=== PATIENT | male | born 1955 | race Caucasian/White ===

== ENCOUNTER → 2017-11-05 | Outpatient (CLI) | payer OTHER ==
[~2017-11-05] MED LIST: ATOR10TA69 PO
== END | disposition home or self-care (01) ==
LOC: CARD 08:16
PROVIDERS: ATTEND Psychiatry & Neurology Neurology
DX: H83.09 Labyrinthitis, unspecified ear (principal)

== ENCOUNTER 2020-05-01 08:50 | Inpatient (IN) | payer OTHER, MEDICARE ==
[~2020-05-01] VITALS: Ht 180.3 cm; Wt 88.5 kg
[2020-05-01 09:22] LABS: BASOPHILS % 0.5 % (0.0-2.0); EOSINOPHILS % 0.1 % (0.0-5.0); HEMOGLOBIN. 15.4 g/dL (14.0-18.0); LYMPHOCYTES % 17.2 % (20.0-50.0); MEAN CORPUSCULAR HEMOGLOBIN 27.7 pg (28.0-32.0); MEAN CORPUSCULAR VOLUME 82.9 fL (80.0-94.0); MEAN PLATELET VOLUME 7.9 fl (7.4-10.4); MONOCYTES % 7.1 % (2.0-8.0); NEUTROPHILS % 75.1 % (40.0-76.0); PLATELET 180 x1000/uL (130-400); RED BLOOD CELL COUNT 5.55 mill/uL (4.7-6.1); RED CELL DISTRIBUTION WIDTH 13.3 % (11.6-14.6)
[2020-05-01 09:28] LABS: CHLORIDE 105 mEq/L (98-107)
[2020-05-01 09:38] LABS: BG CARBOXYHEMOGLOBIN 0.6 % (0.5-1.5); BG DEOXYHEMOGLOBIN 2.7 % (0.0-5.0); BG HCO3 ACT 22.3 mmol/L (22.0-26.0); BG METHEMOGLOBIN 0.3 % (0.0-1.5); BG OXYGEN SATURATION 97.3 % (92.0-98.5); BG OXYHEMOGLOBIN 96.4 % (94.0-97.0); BG PCO2 33.4 mmHg (35.0-45.0); BG PH 7.442 (7.350-7.450); BG PO2 90.3 mmHg (75.0-100.0); BG SAMPLE SITE RIGHT BRACHIAL; BG TOTAL HEMOGLOBIN 16.1 g/dL (12.0-18.0); BG VENT MODE MASK - NRB
[2020-05-01] MEDS ORDERED: DEXAMETHASONE 4MG/ML 1ML VIAL IV ONE (10:45)
[2020-05-01] MEDS ORDERED: CEFTRIAXONE 1 G PREMIX 50 ML IV ONE (10:45)
[2020-05-01] MEDS ORDERED: AZITHROMYCIN 500 MG in DEXT 5% WATER 250 ML IV ONE (10:45)
[2020-05-01] MEDS ORDERED: ALBUTEROL 6.7GM HFA INHALER ORI PRN (13:15)
[2020-05-01] MEDS ORDERED: NITROGLYCERIN 0.4MG TABLET SL SL PRN (13:15)
[2020-05-01] MEDS ORDERED: NOREPINEPHRINE 8 MG in DEXT 5% WATER 242 ML IV PRN ×4 (14:00)
[2020-05-01] MEDS ORDERED: DEXTROSE 50% WATER 50ML SYRINGE IV PRN (14:45)
[2020-05-01] MEDS: ALBUTEROL 6.7GM HFA INHALER ORI SCH (15:00)
[2020-05-01] MEDS: BLOOD SUGAR DIAGNOSTIC STRIP TEST SCH ×2 (18:51→21:00)
[2020-05-01] MEDS: INSULIN LISPRO 100 UNITS/ML SUBCUT SCH (18:53)
[2020-05-01] MEDS ORDERED: ZOLPIDEM TARTRATE 5MG TABLET PO PRN (20:00)
[2020-05-01] MEDS: ASCORBIC ACID 500 MG TABLET PO SCH (21:58)
[2020-05-01] MEDS: FAMOTIDINE 20MG TABLET PO SCH (21:58)
[2020-05-01] MEDS: GUAIFENESIN/DM 600MG/30MG ER TAB 12HR PO SCH (21:58)
[2020-05-02 05:41] LABS: BASOPHILS % 0.7 % (0.0-2.0); HEMATOCRIT. 44.2 % (42.0-52.0); HEMOGLOBIN. 14.9 g/dL (14.0-18.0); LYMPHOCYTES % 13.2 % (20.0-50.0); MEAN CORPUSCULAR VOLUME 82.8 fL (80.0-94.0); MEAN PLATELET VOLUME 8.1 fl (7.4-10.4); NEUTROPHILS % 77.1 % (40.0-76.0); PLATELET 205 x1000/uL (130-400); RED BLOOD CELL COUNT 5.33 mill/uL (4.7-6.1); RED CELL DISTRIBUTION WIDTH 13.3 % (11.6-14.6)
[2020-05-02 05:54] LABS: CHLORIDE 110 mEq/L (98-107)
[2020-05-02 06:00] LABS: PHOSPHORUS 3.8 mg/dL (2.5-4.9)
[2020-05-02] MEDS: BLOOD SUGAR DIAGNOSTIC STRIP TEST SCH ×4 (06:30→21:00)
[2020-05-02] MEDS ORDERED: AZITHROMYCIN 500 MG in DEXT 5% WATER 250 ML IV SCH (09:00)
[2020-05-02] MEDS ORDERED: DEXAMETHASONE 10 MG/ML VIAL IV SCH (09:00)
[2020-05-02] MEDS ORDERED: CEFTRIAXONE 1 G PREMIX 50 ML IV SCH (09:00)
[2020-05-02] MEDS: ASPIRIN 81MG EC TABLET PO SCH (09:26)
[2020-05-02] MEDS: GUAIFENESIN/DM 600MG/30MG ER TAB 12HR PO SCH ×2 (09:27→21:20)
[2020-05-02] MEDS: FAMOTIDINE 20MG TABLET PO SCH ×2 (09:27→21:20)
[2020-05-02] MEDS: ASCORBIC ACID 500 MG TABLET PO SCH ×2 (09:27→21:20)
[2020-05-02] MEDS: ZINC SULFATE 220 MG ( 50 ) CAPSULE PO SCH (09:27)
[2020-05-02] MEDS: INSULIN LISPRO 100 UNITS/ML SUBCUT SCH ×4 (12:09→21:18)
[2020-05-02] MEDS: CHOLECALCIFEROL (D3) 1000 UNIT TABLET PO SCH (14:28)
[2020-05-02] MEDS: ENOXAPARIN 100MG/ML SYR SUBCUT SCH (15:02)
[2020-05-02] MEDS: DOXYCYCLINE HYCLATE 100MG CAPSULE PO SCH (21:20)
[2020-05-03 03:57] LABS: BASOPHILS % 0.8 % (0.0-2.0); HEMATOCRIT. 43.7 % (42.0-52.0); HEMOGLOBIN. 14.5 g/dL (14.0-18.0); LYMPHOCYTES % 9.6 % (20.0-50.0); MEAN CORPUSCULAR HEMOGLOBIN 27.4 pg (28.0-32.0); MEAN CORPUSCULAR VOLUME 82.4 fL (80.0-94.0); MEAN PLATELET VOLUME 8.1 fl (7.4-10.4); MONOCYTES % 7.5 % (2.0-8.0); NEUTROPHILS % 82.1 % (40.0-76.0); PLATELET 251 x1000/uL (130-400); RED CELL DISTRIBUTION WIDTH 13.7 % (11.6-14.6)
[2020-05-03 04:03] LABS: CHLORIDE 111 mEq/L (98-107)
[2020-05-03 04:11] LABS: D-DIMER 0.67 mg/L FEU (<0.50); PROTHROMBIN TIME 10.9 sec (9.6-11.0)
[2020-05-03] MEDS: ENOXAPARIN 100MG/ML SYR SUBCUT SCH ×2 (06:15→18:26)
[2020-05-03 12:00] VITALS: BP 136/69
[2020-05-03] MEDS: BLOOD SUGAR DIAGNOSTIC STRIP TEST SCH ×3 (12:25→20:42)
[2020-05-03] MEDS: INSULIN LISPRO 100 UNITS/ML SUBCUT SCH ×3 (12:26→20:41)
[2020-05-03] MEDS ORDERED: OMEG100016 MT (13:22)
[2020-05-03] MEDS: CHOLECALCIFEROL (D3) 1000 UNIT TABLET PO SCH (14:19)
[2020-05-03] MEDS: GUAIFENESIN/DM 600MG/30MG ER TAB 12HR PO SCH ×2 (14:19→20:36)
[2020-05-03] MEDS: DEXAMETHASONE 10 MG/ML VIAL IV SCH (14:20)
[2020-05-03] MEDS: DOXYCYCLINE HYCLATE 100MG CAPSULE PO SCH ×2 (14:20→20:35)
[2020-05-03] MEDS: ZINC SULFATE 220 MG ( 50 ) CAPSULE PO SCH (14:20)
[2020-05-03] MEDS: ASPIRIN 81MG EC TABLET PO SCH (14:20)
[2020-05-03] MEDS: FAMOTIDINE 20MG TABLET PO SCH ×2 (14:20→20:35)
[2020-05-03] MEDS: ASCORBIC ACID 500 MG TABLET PO SCH ×2 (14:20→20:35)
[2020-05-03 15:00] VITALS: BP 136/69
[2020-05-03] MEDS: CEFTRIAXONE 1,000 MG in DEXTROSE 5% WATER 50 ML IV SCH (15:05)
[2020-05-03 16:00] VITALS: BP 137/74
[2020-05-03 20:00] VITALS: BP 132/70
[2020-05-04] VITALS: BP 136/73
[2020-05-04] MEDS: ALBUTEROL 6.7GM HFA INHALER ORI SCH ×5 (00:02→21:18)
[2020-05-04 04:00] VITALS: BP 133/75
[2020-05-04] MEDS: ENOXAPARIN 100MG/ML SYR SUBCUT SCH ×2 (06:24→18:35)
[2020-05-04] MEDS: BLOOD SUGAR DIAGNOSTIC STRIP TEST SCH ×4 (07:11→21:14)
[2020-05-04] MEDS: INSULIN LISPRO 100 UNITS/ML SUBCUT SCH ×4 (07:11→21:13)
[2020-05-04 08:00] VITALS: BP 131/62
[2020-05-04] MEDS ORDERED: INFLUENZA VACCINE 05/PF 0.5 ML VIAL IM ONE (09:00)
[2020-05-04] MEDS: DEXAMETHASONE 10 MG/ML VIAL IV SCH (09:37)
[2020-05-04] MEDS: ASCORBIC ACID 500 MG TABLET PO SCH ×2 (09:37→21:14)
[2020-05-04] MEDS: GUAIFENESIN/DM 600MG/30MG ER TAB 12HR PO SCH ×2 (09:37→21:14)
[2020-05-04] MEDS: DOXYCYCLINE HYCLATE 100MG CAPSULE PO SCH ×2 (09:37→21:14)
[2020-05-04] MEDS: FAMOTIDINE 20MG TABLET PO SCH ×2 (09:37→21:14)
[2020-05-04] MEDS: CHOLECALCIFEROL (D3) 1000 UNIT TABLET PO SCH (09:37)
[2020-05-04] MEDS: ASPIRIN 81MG EC TABLET PO SCH (09:37)
[2020-05-04] MEDS: ZINC SULFATE 220 MG ( 50 ) CAPSULE PO SCH (09:42)
[2020-05-04 12:00] VITALS: BP 130/70
[2020-05-04] MEDS: CEFTRIAXONE 1,000 MG in DEXTROSE 5% WATER 50 ML IV SCH (14:14)
[2020-05-04 16:00] VITALS: BP 124/67
[2020-05-04 20:00] VITALS: BP 125/66
[2020-05-05] VITALS: BP 127/69
[2020-05-05] MEDS: ALBUTEROL 6.7GM HFA INHALER ORI SCH ×3 (03:22→17:47)
[2020-05-05 04:00] VITALS: BP 130/59
[2020-05-05] MEDS: ENOXAPARIN 100MG/ML SYR SUBCUT SCH ×2 (05:36→17:48)
[2020-05-05] MEDS: BLOOD SUGAR DIAGNOSTIC STRIP TEST SCH ×4 (07:03→21:59)
[2020-05-05 08:00] VITALS: BP 140/60
[2020-05-05] MEDS: INSULIN LISPRO 100 UNITS/ML SUBCUT SCH ×4 (08:10→21:44)
[2020-05-05] MEDS: CEFTRIAXONE 1,000 MG in DEXTROSE 5% WATER 50 ML IV SCH (09:44)
[2020-05-05] MEDS: GUAIFENESIN/DM 600MG/30MG ER TAB 12HR PO SCH ×2 (09:44→21:59)
[2020-05-05] MEDS: DEXAMETHASONE 10 MG/ML VIAL IV SCH (09:44)
[2020-05-05] MEDS: FAMOTIDINE 20MG TABLET PO SCH ×2 (09:44→21:59)
[2020-05-05] MEDS: ASPIRIN 81MG EC TABLET PO SCH (09:44)
[2020-05-05] MEDS: ZINC SULFATE 220 MG ( 50 ) CAPSULE PO SCH (09:44)
[2020-05-05] MEDS: ASCORBIC ACID 500 MG TABLET PO SCH ×2 (09:44→21:58)
[2020-05-05] MEDS: CHOLECALCIFEROL (D3) 1000 UNIT TABLET PO SCH (09:44)
[2020-05-05] MEDS: DOXYCYCLINE HYCLATE 100MG CAPSULE PO SCH ×2 (09:44→21:58)
[2020-05-05] MEDS: TRAMADOL 50MG TABLET PO PRN (10:02)
[2020-05-05 12:00] VITALS: BP 133/65
[2020-05-05 16:00] VITALS: BP 132/63
[2020-05-05 20:00] VITALS: BP 124/61
[2020-05-06] VITALS: BP 115/57
[2020-05-06 04:00] VITALS: BP 157/61
[2020-05-06] MEDS: ENOXAPARIN 100MG/ML SYR SUBCUT SCH ×2 (05:20→17:57)
[2020-05-06] MEDS: BLOOD SUGAR DIAGNOSTIC STRIP TEST SCH ×4 (06:08→21:25)
[2020-05-06 08:00] VITALS: BP 112/67
[2020-05-06] MEDS: INSULIN LISPRO 100 UNITS/ML SUBCUT SCH ×4 (08:10→22:36)
[2020-05-06] MEDS: ASCORBIC ACID 500 MG TABLET PO SCH ×2 (09:32→21:24)
[2020-05-06] MEDS: GUAIFENESIN/DM 600MG/30MG ER TAB 12HR PO SCH ×2 (09:32→21:25)
[2020-05-06] MEDS: FAMOTIDINE 20MG TABLET PO SCH ×2 (09:32→21:25)
[2020-05-06] MEDS: ASPIRIN 81MG EC TABLET PO SCH (09:33)
[2020-05-06] MEDS: CHOLECALCIFEROL (D3) 1000 UNIT TABLET PO SCH (09:33)
[2020-05-06] MEDS: DOXYCYCLINE HYCLATE 100MG CAPSULE PO SCH ×2 (09:33→21:25)
[2020-05-06] MEDS: DEXAMETHASONE 10 MG/ML VIAL IV SCH (09:34)
[2020-05-06] MEDS: ALBUTEROL 6.7GM HFA INHALER ORI SCH ×2 (09:35→15:14)
[2020-05-06] MEDS: ZINC SULFATE 220 MG ( 50 ) CAPSULE PO SCH (09:35)
[2020-05-06] MEDS: TRAMADOL 50MG TABLET PO PRN (09:40)
[2020-05-06 12:00] VITALS: BP 116/67
[2020-05-06 16:00] VITALS: BP 119/58
[2020-05-06] MEDS ORDERED: ENOXAPARIN 100MG/ML SYR SUBCUT SCH (16:51)
[2020-05-06 20:00] VITALS: BP 118/69
[2020-05-07] VITALS: BP 108/70
[2020-05-07 04:00] VITALS: BP 129/58
[2020-05-07] MEDS: ENOXAPARIN 100MG/ML SYR SUBCUT SCH ×2 (05:22→17:33)
[2020-05-07] MEDS: BLOOD SUGAR DIAGNOSTIC STRIP TEST SCH ×4 (05:22→21:01)
[2020-05-07 08:00] VITALS: BP 124/61
[2020-05-07] MEDS: INSULIN LISPRO 100 UNITS/ML SUBCUT SCH ×4 (08:10→21:19)
[2020-05-07] MEDS: ASPIRIN 81MG EC TABLET PO SCH (10:27)
[2020-05-07] MEDS: ASCORBIC ACID 500 MG TABLET PO SCH ×2 (10:27→21:18)
[2020-05-07] MEDS: DOXYCYCLINE HYCLATE 100MG CAPSULE PO SCH ×2 (10:27→21:18)
[2020-05-07] MEDS: CHOLECALCIFEROL (D3) 1000 UNIT TABLET PO SCH (10:27)
[2020-05-07] MEDS: GUAIFENESIN/DM 600MG/30MG ER TAB 12HR PO SCH ×2 (10:27→21:18)
[2020-05-07] MEDS: ZINC SULFATE 220 MG ( 50 ) CAPSULE PO SCH (10:28)
[2020-05-07] MEDS: FAMOTIDINE 20MG TABLET PO SCH ×2 (10:28→21:18)
[2020-05-07] MEDS: ALBUTEROL 6.7GM HFA INHALER ORI SCH ×3 (10:29→22:10)
[2020-05-07] MEDS: DEXAMETHASONE 10 MG/ML VIAL IV SCH (10:30)
[2020-05-07] MEDS ORDERED: FUROSEMIDE 40MG TABLET PO NR (11:00)
[2020-05-07 12:00] VITALS: BP 134/64
[2020-05-07 13:15] LABS: BG BASE EXCESS 0.2 mmol/L (-2.0-2.0); BG CARBOXYHEMOGLOBIN 0.7 % (0.5-1.5); BG DEOXYHEMOGLOBIN 12.3 % (0.0-5.0); BG FRACTION INSPIRED OXYGEN 40; BG HCO3 ACT 22.7 mmol/L (22.0-26.0); BG METHEMOGLOBIN 0.1 % (0.0-1.5); BG OXYGEN SATURATION 87.6 % (92.0-98.5); BG OXYHEMOGLOBIN 86.9 % (94.0-97.0); BG PCO2 31.2 mmHg (35.0-45.0); BG PO2 48.5 mmHg (75.0-100.0); BG SAMPLE SITE LEFT RADIAL; BG TOTAL HEMOGLOBIN 15.4 g/dL (12.0-18.0); BG VENT MODE NASAL CANNULA
[2020-05-07 16:00] VITALS: BP 129/65
[2020-05-07] MEDS ORDERED: TRAMADOL 50MG TABLET PO PRN (16:00)
[2020-05-07 20:00] VITALS: BP 125/63
[2020-05-08] VITALS: BP 120/66
[2020-05-08] MEDS: ALBUTEROL 6.7GM HFA INHALER ORI SCH ×4 (03:50→21:00)
[2020-05-08 04:00] VITALS: BP 129/64
[2020-05-08] MEDS: BLOOD SUGAR DIAGNOSTIC STRIP TEST SCH ×4 (06:14→20:13)
[2020-05-08 06:31] LABS: CHLORIDE 108 mEq/L (98-107); HEMATOCRIT. 43.6 % (42.0-52.0); HEMOGLOBIN. 14.2 g/dL (14.0-18.0); MEAN CORPUSCULAR HEMOGLOBIN 27.2 pg (28.0-32.0); MEAN CORPUSCULAR VOLUME 83.6 fL (80.0-94.0); PLATELET 388 x1000/uL (130-400); RED BLOOD CELL COUNT 5.22 mill/uL (4.7-6.1); RED CELL DISTRIBUTION WIDTH 13.4 % (11.6-14.6)
[2020-05-08] MEDS: ENOXAPARIN 100MG/ML SYR SUBCUT SCH ×2 (06:45→17:40)
[2020-05-08 08:00] VITALS: BP 134/68
[2020-05-08] MEDS: INSULIN LISPRO 100 UNITS/ML SUBCUT SCH ×4 (08:10→20:42)
[2020-05-08] MEDS: DEXAMETHASONE 10 MG/ML VIAL IV SCH (08:44)
[2020-05-08] MEDS: ASPIRIN 81MG EC TABLET PO SCH (08:44)
[2020-05-08] MEDS: ZINC SULFATE 220 MG ( 50 ) CAPSULE PO SCH (08:44)
[2020-05-08] MEDS: ASCORBIC ACID 500 MG TABLET PO SCH ×2 (08:45→20:41)
[2020-05-08] MEDS: FAMOTIDINE 20MG TABLET PO SCH ×2 (08:45→20:41)
[2020-05-08] MEDS: CHOLECALCIFEROL (D3) 1000 UNIT TABLET PO SCH (08:45)
[2020-05-08 12:00] VITALS: BP 110/58
[2020-05-08] MEDS: GUAIFENESIN/DM 600MG/30MG ER TAB 12HR PO SCH ×2 (12:36→20:41)
[2020-05-08 16:00] VITALS: BP 119/71
[2020-05-08 20:00] VITALS: BP 129/65
[2020-05-09] VITALS: BP 133/71
[2020-05-09 04:00] VITALS: BP 128/59
[2020-05-09] MEDS: ENOXAPARIN 100MG/ML SYR SUBCUT SCH ×2 (05:13→17:19)
[2020-05-09] MEDS: BLOOD SUGAR DIAGNOSTIC STRIP TEST SCH ×4 (05:22→23:00)
[2020-05-09 07:31] LABS: PLATELET ESTIMATE NORMAL
[2020-05-09 08:00] VITALS: BP 124/73
[2020-05-09] MEDS: INSULIN LISPRO 100 UNITS/ML SUBCUT SCH ×4 (08:10→23:09)
[2020-05-09] MEDS: CHOLECALCIFEROL (D3) 1000 UNIT TABLET PO SCH (09:22)
[2020-05-09] MEDS: GUAIFENESIN/DM 600MG/30MG ER TAB 12HR PO SCH ×2 (09:22→23:11)
[2020-05-09] MEDS: ZINC SULFATE 220 MG ( 50 ) CAPSULE PO SCH (09:22)
[2020-05-09] MEDS: ASPIRIN 81MG EC TABLET PO SCH (09:22)
[2020-05-09] MEDS: FAMOTIDINE 20MG TABLET PO SCH ×2 (09:22→22:58)
[2020-05-09] MEDS: ASCORBIC ACID 500 MG TABLET PO SCH ×2 (09:22→22:58)
[2020-05-09] MEDS: DEXAMETHASONE 10 MG/ML VIAL IV SCH (09:27)
[2020-05-09] MEDS: ALBUTEROL 6.7GM HFA INHALER ORI SCH ×3 (09:29→23:16)
[2020-05-09 12:00] VITALS: BP_SYST 123
[2020-05-09 16:00] VITALS: BP 123/67
[2020-05-09 20:00] VITALS: BP 115/67
[2020-05-10] VITALS: BP 115/69
[2020-05-10 04:00] VITALS: BP 127/70
[2020-05-10] MEDS: ENOXAPARIN 100MG/ML SYR SUBCUT SCH ×2 (06:30→17:02)
[2020-05-10] MEDS: ALBUTEROL 6.7GM HFA INHALER ORI SCH ×4 (06:35→21:00)
[2020-05-10] MEDS: BLOOD SUGAR DIAGNOSTIC STRIP TEST SCH ×4 (06:42→21:03)
[2020-05-10 08:00] VITALS: BP 149/69
[2020-05-10] MEDS: ZINC SULFATE 220 MG ( 50 ) CAPSULE PO SCH (09:39)
[2020-05-10] MEDS: GUAIFENESIN/DM 600MG/30MG ER TAB 12HR PO SCH ×2 (09:39→21:12)
[2020-05-10] MEDS: CHOLECALCIFEROL (D3) 1000 UNIT TABLET PO SCH (09:40)
[2020-05-10] MEDS: ASPIRIN 81MG EC TABLET PO SCH (09:40)
[2020-05-10] MEDS: ASCORBIC ACID 500 MG TABLET PO SCH ×2 (09:40→21:12)
[2020-05-10] MEDS: DEXAMETHASONE 10 MG/ML VIAL IV SCH (09:42)
[2020-05-10] MEDS: INSULIN LISPRO 100 UNITS/ML SUBCUT SCH ×4 (09:43→21:13)
[2020-05-10 12:00] VITALS: BP 105/63
[2020-05-10] MEDS: FAMOTIDINE 20MG TABLET PO SCH ×2 (13:10→21:12)
[2020-05-10 16:00] VITALS: BP 116/65
[2020-05-10 20:00] VITALS: BP 124/44
[2020-05-11] VITALS: BP 120/68
[2020-05-11] MEDS: ALBUTEROL 6.7GM HFA INHALER ORI SCH ×4 (03:00→21:58)
[2020-05-11 04:00] VITALS: BP 124/66
[2020-05-11] MEDS: ENOXAPARIN 100MG/ML SYR SUBCUT SCH ×2 (05:22→17:15)
[2020-05-11 08:00] VITALS: BP 108/53
[2020-05-11] MEDS: INSULIN LISPRO 100 UNITS/ML SUBCUT SCH ×4 (08:10→21:54)
[2020-05-11] MEDS: BLOOD SUGAR DIAGNOSTIC STRIP TEST SCH ×4 (08:23→21:37)
[2020-05-11] MEDS: ZINC SULFATE 220 MG ( 50 ) CAPSULE PO SCH (09:33)
[2020-05-11] MEDS: GUAIFENESIN/DM 600MG/30MG ER TAB 12HR PO SCH ×2 (09:33→22:40)
[2020-05-11] MEDS: DEXAMETHASONE 10 MG/ML VIAL IV SCH (09:33)
[2020-05-11] MEDS: ASPIRIN 81MG EC TABLET PO SCH (09:33)
[2020-05-11] MEDS: ASCORBIC ACID 500 MG TABLET PO SCH ×2 (09:33→21:53)
[2020-05-11] MEDS: CHOLECALCIFEROL (D3) 1000 UNIT TABLET PO SCH (09:33)
[2020-05-11] MEDS: BENZONATATE 100MG CAPSULE PO SCH ×2 (11:44→18:17)
[2020-05-11] MEDS: FAMOTIDINE 20MG TABLET PO SCH ×2 (11:44→21:53)
[2020-05-11 16:00] VITALS: BP 122/70
[2020-05-11] MEDS ORDERED: ERGOCALCIFEROL 50000UNITS CAPSULE PO SCH (18:00)
[2020-05-11 20:00] VITALS: BP 123/65
[2020-05-12] VITALS: BP 115/60
[2020-05-12] MEDS: BENZONATATE 100MG CAPSULE PO SCH ×3 (03:10→18:01)
[2020-05-12] MEDS: ALBUTEROL 6.7GM HFA INHALER ORI SCH ×4 (03:12→21:00)
[2020-05-12 04:00] VITALS: BP 112/62
[2020-05-12] MEDS: ENOXAPARIN 100MG/ML SYR SUBCUT SCH ×2 (06:02→17:44)
[2020-05-12] MEDS: BLOOD SUGAR DIAGNOSTIC STRIP TEST SCH ×4 (06:27→21:32)
[2020-05-12] MEDS: INSULIN LISPRO 100 UNITS/ML SUBCUT SCH ×4 (06:27→21:44)
[2020-05-12 08:00] VITALS: BP 122/65
[2020-05-12] MEDS: GUAIFENESIN/DM 600MG/30MG ER TAB 12HR PO SCH (10:33)
[2020-05-12] MEDS: DEXAMETHASONE 10 MG/ML VIAL IV SCH (10:33)
[2020-05-12] MEDS: FAMOTIDINE 20MG TABLET PO SCH ×2 (10:33→21:45)
[2020-05-12] MEDS: ASPIRIN 81MG EC TABLET PO SCH (10:33)
[2020-05-12] MEDS: ZINC SULFATE 220 MG ( 50 ) CAPSULE PO SCH (10:33)
[2020-05-12] MEDS: ASCORBIC ACID 500 MG TABLET PO SCH ×2 (10:34→21:45)
[2020-05-12 12:00] VITALS: BP 128/62
[2020-05-12 16:00] VITALS: BP 112/59
[2020-05-12 20:00] VITALS: BP 126/64
[2020-05-13] VITALS: BP 106/70
[2020-05-13] MEDS: ALBUTEROL 6.7GM HFA INHALER ORI SCH ×4 (03:00→21:00)
[2020-05-13 04:00] VITALS: BP 110/68
[2020-05-13] MEDS: BENZONATATE 100MG CAPSULE PO SCH ×3 (04:06→18:01)
[2020-05-13] MEDS: ENOXAPARIN 100MG/ML SYR SUBCUT SCH ×2 (05:14→18:03)
[2020-05-13] MEDS: BLOOD SUGAR DIAGNOSTIC STRIP TEST SCH ×4 (07:40→21:00)
[2020-05-13 07:41] LABS: BASOPHILS % 0.7 % (0.0-2.0); EOSINOPHILS % 0.3 % (0.0-5.0); HEMATOCRIT. 44.2 % (42.0-52.0); HEMOGLOBIN. 14.4 g/dL (14.0-18.0); LYMPHOCYTES % 8.6 % (20.0-50.0); MEAN CORPUSCULAR HEMOGLOBIN 27.4 pg (28.0-32.0); MEAN CORPUSCULAR VOLUME 84.3 fL (80.0-94.0); MEAN PLATELET VOLUME 8.8 fl (7.4-10.4); MONOCYTES % 4.9 % (2.0-8.0); NEUTROPHILS % 85.5 % (40.0-76.0); PLATELET 316 x1000/uL (130-400); RED BLOOD CELL COUNT 5.24 mill/uL (4.7-6.1); RED CELL DISTRIBUTION WIDTH 13.3 % (11.6-14.6)
[2020-05-13 07:58] LABS: CHLORIDE 106 mEq/L (98-107)
[2020-05-13 08:00] VITALS: BP 138/68
[2020-05-13] MEDS: INSULIN LISPRO 100 UNITS/ML SUBCUT SCH ×4 (08:10→22:46)
[2020-05-13] MEDS: ASPIRIN 81MG EC TABLET PO SCH (09:22)
[2020-05-13] MEDS: ASCORBIC ACID 500 MG TABLET PO SCH ×2 (09:22→22:46)
[2020-05-13] MEDS: ZINC SULFATE 220 MG ( 50 ) CAPSULE PO SCH (09:22)
[2020-05-13] MEDS: FAMOTIDINE 20MG TABLET PO SCH ×2 (09:22→22:46)
[2020-05-13] MEDS: GUAIFENESIN/DM 600MG/30MG ER TAB 12HR PO SCH (09:22)
[2020-05-13 12:00] VITALS: BP 129/70
[2020-05-13] MEDS ORDERED: GUAIFENESIN-DM 200MG-20MG/10ML UDC PO PRN (14:45)
[2020-05-13 16:00] VITALS: BP 117/74
[2020-05-13 20:00] VITALS: BP 122/69
[2020-05-14] VITALS: BP 111/72
[2020-05-14] MEDS: ALBUTEROL 6.7GM HFA INHALER ORI SCH ×4 (03:00→21:08)
[2020-05-14 04:00] VITALS: BP 130/68
[2020-05-14] MEDS: BENZONATATE 100MG CAPSULE PO SCH ×2 (04:23→11:00)
[2020-05-14] MEDS: ENOXAPARIN 100MG/ML SYR SUBCUT SCH ×2 (06:47→17:24)
[2020-05-14] MEDS: BLOOD SUGAR DIAGNOSTIC STRIP TEST SCH ×4 (07:40→21:06)
[2020-05-14 08:00] VITALS: BP 124/68
[2020-05-14] MEDS: INSULIN LISPRO 100 UNITS/ML SUBCUT SCH ×4 (08:10→21:07)
[2020-05-14] MEDS: ASCORBIC ACID 500 MG TABLET PO SCH ×2 (08:51→21:06)
[2020-05-14] MEDS: ASPIRIN 81MG EC TABLET PO SCH (08:51)
[2020-05-14] MEDS: ZINC SULFATE 220 MG ( 50 ) CAPSULE PO SCH (08:51)
[2020-05-14] MEDS: FAMOTIDINE 20MG TABLET PO SCH ×2 (08:52→21:06)
[2020-05-14 12:00] VITALS: BP 128/65
[2020-05-14 16:00] VITALS: BP 130/76
[2020-05-14 20:00] VITALS: BP 123/72
[2020-05-15] VITALS: BP 120/67
[2020-05-15 04:00] VITALS: BP 126/66
[2020-05-15] MEDS: ALBUTEROL 6.7GM HFA INHALER ORI SCH ×4 (04:20→21:59)
[2020-05-15] MEDS: BLOOD SUGAR DIAGNOSTIC STRIP TEST SCH ×4 (06:09→21:52)
[2020-05-15] MEDS: ENOXAPARIN 100MG/ML SYR SUBCUT SCH ×2 (06:09→18:34)
[2020-05-15] MEDS: INSULIN LISPRO 100 UNITS/ML SUBCUT SCH ×4 (06:10→21:51)
[2020-05-15 08:00] VITALS: BP 136/67
[2020-05-15] MEDS: ASPIRIN 81MG EC TABLET PO SCH (09:00)
[2020-05-15] MEDS: ZINC SULFATE 220 MG ( 50 ) CAPSULE PO SCH (09:24)
[2020-05-15] MEDS: ASCORBIC ACID 500 MG TABLET PO SCH ×2 (09:24→21:52)
[2020-05-15] MEDS: FAMOTIDINE 20MG TABLET PO SCH ×2 (09:24→21:52)
[2020-05-15 12:00] VITALS: BP 123/70
[2020-05-15 16:00] VITALS: BP 134/70
[2020-05-15 20:00] VITALS: BP 134/63
[2020-05-16] VITALS: BP 150/65
[2020-05-16] MEDS: ALBUTEROL 6.7GM HFA INHALER ORI SCH ×4 (03:46→21:51)
[2020-05-16] MEDS: ENOXAPARIN 100MG/ML SYR SUBCUT SCH ×2 (06:00→21:52)
[2020-05-16 06:23] LABS: BASOPHILS % 0.7 % (0.0-2.0); EOSINOPHILS % 1.8 % (0.0-5.0); HEMATOCRIT. 41.1 % (42.0-52.0); HEMOGLOBIN. 13.6 g/dL (14.0-18.0); LYMPHOCYTES % 10.6 % (20.0-50.0); MEAN CORPUSCULAR HEMOGLOBIN 27.8 pg (28.0-32.0); MEAN PLATELET VOLUME 8.9 fl (7.4-10.4); MONOCYTES % 4.9 % (2.0-8.0); PLATELET 235 x1000/uL (130-400); RED CELL DISTRIBUTION WIDTH 13.2 % (11.6-14.6)
[2020-05-16 06:43] LABS: CHLORIDE 103 mEq/L (98-107)
[2020-05-16] MEDS: BLOOD SUGAR DIAGNOSTIC STRIP TEST SCH ×4 (06:45→21:51)
[2020-05-16] MEDS: INSULIN LISPRO 100 UNITS/ML SUBCUT SCH ×4 (06:45→21:00)
[2020-05-16] MEDS: ZINC SULFATE 220 MG ( 50 ) CAPSULE PO SCH (09:55)
[2020-05-16] MEDS: FAMOTIDINE 20MG TABLET PO SCH ×2 (09:56→21:51)
[2020-05-16] MEDS: ASCORBIC ACID 500 MG TABLET PO SCH ×2 (09:56→21:50)
[2020-05-16] MEDS: ASPIRIN 81MG EC TABLET PO SCH (09:56)
[2020-05-16 11:54] LABS: BG BASE EXCESS 0.4 mmol/L (-2.0-2.0); BG CARBOXYHEMOGLOBIN 1.2 % (0.5-1.5); BG DEOXYHEMOGLOBIN 3.9 % (0.0-5.0); BG FRACTION INSPIRED OXYGEN 100; BG HCO3 ACT 22.8 mmol/L (22.0-26.0); BG METHEMOGLOBIN 0.1 % (0.0-1.5); BG OXYHEMOGLOBIN 94.8 % (94.0-97.0); BG PH 7.484 (7.350-7.450); BG PO2 72.3 mmHg (75.0-100.0); BG SAMPLE SITE RIGHT RADIAL; BG TOTAL HEMOGLOBIN 15.2 g/dL (12.0-18.0); BG VENT MODE MASK - NRB
[2020-05-16 12:00] VITALS: BP 151/72
[2020-05-16] MEDS ORDERED: ACETAMINOPHEN 500MG TABLET PO PRN (15:45)
[2020-05-16] MEDS ORDERED: CLONIDINE 0.1MG TABLET PO PRN (15:45)
[2020-05-16 20:00] VITALS: BP 135/75
[2020-05-17 00:09] VITALS: BP 137/77
[2020-05-17] MEDS: ALBUTEROL 6.7GM HFA INHALER ORI SCH ×4 (03:00→21:00)
[2020-05-17 04:04] VITALS: BP 132/75
[2020-05-17] MEDS: ENOXAPARIN 100MG/ML SYR SUBCUT SCH ×2 (06:00→18:00)
[2020-05-17] MEDS: BLOOD SUGAR DIAGNOSTIC STRIP TEST SCH ×4 (07:40→20:27)
[2020-05-17 08:00] VITALS: BP 143/78
[2020-05-17] MEDS: INSULIN LISPRO 100 UNITS/ML SUBCUT SCH ×4 (08:10→20:27)
[2020-05-17] MEDS: ZINC SULFATE 220 MG ( 50 ) CAPSULE PO SCH (09:08)
[2020-05-17] MEDS: ASPIRIN 81MG EC TABLET PO SCH (09:08)
[2020-05-17] MEDS: ASCORBIC ACID 500 MG TABLET PO SCH ×2 (09:08→20:26)
[2020-05-17] MEDS: FAMOTIDINE 20MG TABLET PO SCH ×2 (09:08→20:26)
[2020-05-17 12:00] VITALS: BP 141/84
[2020-05-17 16:00] VITALS: BP 142/79
[2020-05-17 20:00] VITALS: BP 116/77
[2020-05-18] VITALS: BP 144/75
[2020-05-18] MEDS: ALBUTEROL 6.7GM HFA INHALER ORI SCH ×3 (03:00→14:58)
[2020-05-18 04:00] VITALS: BP 146/82
[2020-05-18] MEDS: ENOXAPARIN 100MG/ML SYR SUBCUT SCH (06:00)
[2020-05-18] MEDS: BLOOD SUGAR DIAGNOSTIC STRIP TEST SCH ×2 (07:39→12:30)
[2020-05-18 08:00] VITALS: BP 157/73
[2020-05-18] MEDS: INSULIN LISPRO 100 UNITS/ML SUBCUT SCH ×2 (08:26→12:31)
[2020-05-18] MEDS: ASPIRIN 81MG EC TABLET PO SCH (08:26)
[2020-05-18] MEDS: ZINC SULFATE 220 MG ( 50 ) CAPSULE PO SCH (08:26)
[2020-05-18] MEDS: ASCORBIC ACID 500 MG TABLET PO SCH (08:26)
[2020-05-18] MEDS: FAMOTIDINE 20MG TABLET PO SCH (08:26)
[2020-05-18 12:00] VITALS: BP 152/78
[2020-05-18 14:40] VITALS: BP 127/101
[2020-05-18] MEDS ORDERED: FENTANYL CITRATE/PF 1,000 MCG in SODIUM CHLORIDE 0.9% 80 ML IV PRN (15:00)
[2020-05-18] MEDS ORDERED: MIDAZOLAM HCL 100 MG in DEXT 5% WATER 80 ML IV PRN (15:00)
[2020-05-18] MEDS ORDERED: DILTIAZEM HCL 5MG/ML 5ML VIAL IV ONE (15:00)
[2020-05-18 15:56] VITALS: BP 138/66
[2020-05-18] MEDS ORDERED: FENTANYL CITRATE/PF 2,500 MCG in SODIUM CHLORIDE 0.9% 200 ML IV PRN (16:00)
[2020-05-18] MEDS ORDERED: PHENYLEPHRINE 100 MG in DEXT 5% WATER 240 ML IV PRN (18:00)
[2020-05-18] MEDS ORDERED: PIPERACILLIN/TAZOBACTAM 3.375 G in DEXT 5% WATER 100 ML IV SCH (19:30)
[2020-05-18] MEDS ORDERED: VANCOMYCIN 1500MG in DEXTROSE 5% WATER 250ML IV NR (20:30)
[2020-05-19] MEDS ORDERED: VANCOMYCIN 1250MG in DEXTROSE 5% WATER 250ML IV SCH (09:00)
== END 2020-05-18 19:32 | disposition expired | DRG 871 ==
LOC: ER 09:11 → MICUSO 12:36 → SUPCPDRO 12:50 → EDBEDREQ 19:59 → EDBEDREQTM 19:59 → 7WST 05-03 07:34 → MICUSO 05-18 17:45
PROVIDERS: ADMIT Internal Medicine; ATTEND Internal Medicine
PROC: 5A09357 Assistance with Respiratory Ventilation, Less than 24 Consecutive Hours, Continuous Positive Airway Pressure (ICD-10-PCS; principal; 2020-05-01)
PROC: 5A12012 Performance of Cardiac Output, Single, Manual (ICD-10-PCS; 2020-05-18)
PROC: 0BH17EZ Insertion of Endotracheal Airway into Trachea, Via Natural or Artificial Opening (ICD-10-PCS; 2020-05-18)
DX: A41.89 Other specified sepsis (principal); U07.1 COVID-19; J96.01 Acute respiratory failure with hypoxia; J12.89 Other viral pneumonia; E44.0 Moderate protein-calorie malnutrition; B97.89 Other viral agents as the cause of diseases classified elsewhere; E11.9 Type 2 diabetes mellitus without complications; E78.00 Pure hypercholesterolemia, unspecified; Z66 Do not resuscitate; E78.5 Hyperlipidemia, unspecified; Z79.4 Long term (current) use of insulin; Z86.19 Personal history of other infectious and parasitic diseases; Z68.27 Body mass index [BMI] 27.0-27.9, adult; Z79.899 Other long term (current) drug therapy
CPT/HCPCS: 36415; 36600; 71045; 80048; 80053; 80061; 81025; 82375; 82728; 82805; 82962; 83036; 83735; 83880; 84100; 84145; 84484; 85025; 85379; 86140; 87635; 93005; 93970; 99291; J0456; J0696; J1100; J1650; J1815; J2250; J2543; J3010; J3370; J7050; J7060